=== PATIENT | female | born 1985 | race African-American/Black ===

== ENCOUNTER 2019-03-16 08:43 | Emergency (ER) | payer OTHER ==
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
[2019-03-16 10:09] LABS: ABSOLUTE BASOPHILS # (AUTO) 0.1 10^3/uL (0.0-0.2); ABSOLUTE EOSINOPHILS # (AUTO) 0.2 10^3/uL (0.0-0.6); ABSOLUTE LYMPHOCYTES (AUTO) 2.5 10^3/uL (0.5-4.7); ABSOLUTE MONOCYTES (AUTO) 0.7 10^3/uL (0.1-1.4); ABSOLUTE NEUT (AUTO) 3.4 10^3/uL (1.7-8.2); BASOPHILS % (AUTO) 0.8 % (0-2); EOSINOPHILS % (AUTO) 3.5 % (0-6); HEMATOCRIT 39.3 % (36.0-47.0); HEMOGLOBIN 12.5 g/dL (12.0-15.5); LYMPHOCYTES % (AUTO) 36.4 % (13-45); MEAN CORPUSCULAR HEMOGLOBIN 25.8 pg (27.0-33.4); MEAN CORPUSCULAR HGB CONC 31.9 g/dL (32.0-36.0); MEAN CORPUSCULAR VOLUME 81 fl (80-97); MONOCYTES % (AUTO) 9.7 % (3-13); PLATELET COUNT 296 10^3/uL (150-450); RED BLOOD COUNT 4.87 10^6/uL (3.72-5.28); RED CELL DISTRIBUTION WIDTH 13.5 % (11.5-14.0); SEGMENTED NEUTROPHILS % (AUTO) 49.6 % (42-78); TOTAL CELLS COUNTED % (AUTO) 100 %; WHITE BLOOD COUNT 6.8 10^3/uL (4.0-10.5)
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
[2019-03-16 10:19] LABS: ANION GAP 8 (5-19); BLOOD UREA NITROGEN 16 mg/dL (7-20); CALCIUM 9.6 mg/dL (8.4-10.2); CARBON DIOXIDE 29 mmol/L (22-30); CHLORIDE 103 mmol/L (98-107); GLUCOSE 126 mg/dL (75-110); POTASSIUM 4.3 mmol/L (3.6-5.0)
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
[2019-03-16 10:55] VITALS: BP 104/74
== END 2019-03-16 10:56 | disposition home or self-care (01) ==
LOC: ER 08:43
DX: T14.8XXA Other injury of unspecified body region, initial encounter (principal); M79.642 Pain in left hand; M25.569 Pain in unspecified knee; R10.30 Lower abdominal pain, unspecified; V49.40XA Driver injured in collision with unspecified motor vehicles in traffic accident, initial encounter
CPT/HCPCS: 36415; 73522; 80048; 84703; 85025; 99284

== ENCOUNTER 2019-03-20 18:34 | Emergency (ER) | payer OTHER ==
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
[2019-03-20 20:41] LABS: ABSOLUTE BASOPHILS # (AUTO) 0.1 10^3/uL (0.0-0.2); ABSOLUTE EOSINOPHILS # (AUTO) 0.3 10^3/uL (0.0-0.6); ABSOLUTE MONOCYTES (AUTO) 0.9 10^3/uL (0.1-1.4); ABSOLUTE NEUT (AUTO) 4.6 10^3/uL (1.7-8.2); BASOPHILS % (AUTO) 0.8 % (0-2); EOSINOPHILS % (AUTO) 3.3 % (0-6); HEMATOCRIT 38.2 % (36.0-47.0); HEMOGLOBIN 12.5 g/dL (12.0-15.5); LYMPHOCYTES % (AUTO) 40.6 % (13-45); MEAN CORPUSCULAR HEMOGLOBIN 26.6 pg (27.0-33.4); MEAN CORPUSCULAR HGB CONC 32.6 g/dL (32.0-36.0); MEAN CORPUSCULAR VOLUME 82 fl (80-97); MONOCYTES % (AUTO) 8.7 % (3-13); PLATELET COUNT 301 10^3/uL (150-450); RED BLOOD COUNT 4.68 10^6/uL (3.72-5.28); RED CELL DISTRIBUTION WIDTH 13.8 % (11.5-14.0); SEGMENTED NEUTROPHILS % (AUTO) 46.6 % (42-78); TOTAL CELLS COUNTED % (AUTO) 100 %
[2019-03-20 20:49] LABS: APPEARANCE,URINE SLIGHTLY-CLOUDY; BILIRUBIN,URINE NEGATIVE (NEGATIVE); COLOR,URINE YELLOW; GLUCOSE, URINE NEGATIVE (NEGATIVE); KETONES,URINE NEGATIVE (NEGATIVE); PROTEIN,URINE NEGATIVE (NEGATIVE); URINE SPECIFIC GRAVITY 1.027
[2019-03-20 20:59] LABS: ALBUMIN 4.4 g/dL (3.5-5.0); ALKALINE PHOSPHATASE 53 U/L (38-126); ANION GAP 9 (5-19); ASPARTATE AMINO TRANSFERASE 21 U/L (14-36); BILIRUBIN,DIRECT 0.1 mg/dL (0.0-0.4); BILIRUBIN,TOTAL 0.5 mg/dL (0.2-1.3); BLOOD UREA NITROGEN 17 mg/dL (7-20); CALCIUM 9.3 mg/dL (8.4-10.2); CARBON DIOXIDE 28 mmol/L (22-30); CHLORIDE 103 mmol/L (98-107); GLUCOSE 97 mg/dL (75-110); POTASSIUM 4.1 mmol/L (3.6-5.0)
[2019-03-21 01:03] VITALS: BP 118/78
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
== END 2019-03-21 01:17 | disposition home or self-care (01) ==
LOC: ER 18:34
DX: S30.1XXA Contusion of abdominal wall, initial encounter (principal); M54.5 Low back pain; V49.9XXA Car occupant (driver) (passenger) injured in unspecified traffic accident, initial encounter; R53.1 Weakness
CPT/HCPCS: 36415; 80053; 81001; 83690; 84703; 85025; 87086; 99284